=== PATIENT | female | born 1960 | race Two or more races ===

== ENCOUNTER 2018-05-18 13:36 | Inpatient (IN) | payer OTHER ==
[2018-05-18 18:39] VITALS: BMI 26.4
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
[2018-05-18] MEDS ORDERED: P-EPHED 60MG/TRIPROLIDI 2.5MG TABLET PO PRN (20:40)
[2018-05-18] MEDS ORDERED: MAG HYDROX/AL HYDROX/SIMETH 30 ML UNIT-DOSE CUP PO PRN (20:40)
[2018-05-18] MEDS ORDERED: NICOTINE POLACRILEX 2 MG GUM BC PRN (20:40)
[2018-05-18] MEDS ORDERED: IBUPROFEN 400 MG TABLET (FP) PO PRN (20:40)
[2018-05-18] MEDS ORDERED: ACETAMINOPHEN 325 MG TABLET (FP) PO PRN (20:40)
[2018-05-18] MEDS ORDERED: guaiFENesin/D-METHORPHAN HB 10 ML UNIT-DOSE CUPS PO PRN (20:40)
[2018-05-18] MEDS ORDERED: MENTHOL/PHENOL 1 EACH UD MM PRN (20:40)
[2018-05-18] MEDS ORDERED: LOPERAMIDE HCL 2 MG CAPSULE PO PRN (20:40)
[2018-05-18] MEDS ORDERED: METHADONE HCL 10 MG TABLET (FOR DETOX USE ONLY) PO ONE ×2 (20:40→23:00)
[2018-05-18] MEDS ORDERED: MAGNESIUM HYDROX 2400MG/30ML ORAL SUSPENSION 30 ML CUP PO PRN (20:40)
[2018-05-18] MEDS ORDERED: MAGNESIUM CITRATE 300 ML BOTTLE PO PRN (20:40)
[2018-05-18] MEDS ORDERED: hydrOXYzine PAMOATE 50 MG CAPSULE (FP) PO PRN (20:40)
[2018-05-18] MEDS: diazePAM 5 MG TABLET PO PRN (23:21)
[2018-05-18] MEDS: THIAMINE HCL 100 MG TABLET (FP) PO SCH (23:48)
[2018-05-19] MEDS ORDERED: METHADONE HCL 10 MG TABLET (FOR DETOX USE ONLY) PO ONE (10:00)
[2018-05-19] MEDS: PRENATAL VITAMINS W/ FOLIC ACID TABLET (FP) PO SCH (10:23)
[2018-05-19] MEDS: NICOTINE 14 MG/24 HOURS TOPICAL PATCH TD SCH (10:24)
[2018-05-19] MEDS: diazePAM 5 MG TABLET PO PRN (10:24)
[2018-05-19 10:47] LABS: URINE APPEARANCE TURBID; URINE BILIRUBIN NEGATIVE (<2.0 mg/dL); URINE GLUCOSE (UA) NEGATIVE (NEGATIVE); URINE KETONE NEGATIVE (NEGATIVE); URINE LEUK ESTERASE TRACE (NEGATIVE); URINE NITRITE NEGATIVE (NEGATIVE)
[2018-05-19 10:53] LABS: ANION GAP 8 MMOL/L (8-16); BLOOD UREA NITROGEN 15 mg/dL (7-18); CALCIUM 8.4 mg/dL (8.5-10.1); CHLORIDE 103 mmol/L (98-107); CO2 28 mmol/L (21-32); GLUCOSE,RANDOM 91 mg/dL (74-106); POTASSIUM 3.3 mmol/L (3.5-5.1); SODIUM 139 mmol/L (136-145)
[2018-05-19 10:55] LABS: HEMATOCRIT 35.1 % (32.4-45.2); HEMOGLOBIN 11.8 GM/dL (10.7-15.3); MCH 28.3 pg (25.7-33.7); MCHC 33.5 g/dl (32.0-36.0); MEAN CELL VOLUME 84.3 fl (80-96); MEAN PLT VOLUME 8.6 fl (7.5-11.1); PLATELET COUNT 108 K/MM3 (134-434); RBC 4.17 M/mm3 (3.60-5.2); RDW 15.4 % (11.6-15.6); WHITE BLOOD COUNT 2.8 K/mm3 (4.0-10.0)
[2018-05-19 10:57] LABS: ALK PHOS 61 U/L (45-117); BILIRUBIN,TOTAL 0.4 mg/dL (0.2-1.0); CREATININE 0.8 mg/dL (0.55-1.02); SGOT/AST 34 U/L (15-37); SGPT/ALT 19 U/L (12-78)
[2018-05-19 11:01] LABS: URINE COLOR DK YELLOW; URINE PROTEIN 2+ (NEGATIVE)
[2018-05-19 11:05] LABS: TOT PROT 10.6 g/dl (6.4-8.2)
[2018-05-19 11:28] LABS: EPI CELLS RARE /HPF (FEW); URINE BACTERIA MANY /hpf (NONE SEEN); URINE MUCUS MANY
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
[2018-05-19] MEDS ORDERED: risperiDONE 1 MG TABLET (FP) PO ONE (11:56)
--- NOTE | 2018-05-19 12:13 | PN ---
BHS COWS - Scale Resting Pulse: 0= [place] 80 or Below Sweatin= Chills/Flushing Restless Observation: 1= Difficult to Sit Still Pupil Size: 1= Pupils >than Normal Bone or Joint Aches: 2= Severe Diffuse Aches Runny Nose/ Eye Tearin= Nasal Congestion GI Upset > 30mins: 1= Stomach Cramp Tremor Observation of Outstretched Hands: 2= Slight Tremor Visible Yawning Observation: 2= >3x During Session Anxiety or Irritability: 2=Irritable/Anxious Goose Flesh Skin: 0=Smooth Skin COWS Score: 13 BHS Progress Note (SOAP) Subjective: muscle cramping body aches joints pain sweat tremor restlessness Objective: 05/19/18 12:11 Vital Signs Temperature 99.1 F 05/19/18 09:40 Pulse Rate 81 05/19/18 09:40 Respiratory Rate 16 05/19/18 09:40 Blood Pressure 122/63 05/19/18 09:40 O2 Sat by Pulse Oximetry (%) Laboratory Last Values WBC 2.8 K/mm3 (4.0-10.0) L 05/19/18 07:40 RBC 4.17 M/mm3 (3.60-5.2) 05/19/18 07:40 Hgb 11.8 GM/dL (10.7-15.3) 05/19/18 07:40 Hct 35.1 % (32.4-45.2) 05/19/18 07:40 MCV 84.3 fl (80-96) 05/19/18 07:40 MCH 28.3 pg (25.7-33.7) 05/19/18 07:40 MCHC 33.5 g/dl (32.0-36.0) 05/19/18 07:40 RDW 15.4 % (11.6-15.6) 05/19/18 07:40 Plt Count 108 K/MM3 (134-434) L 05/19/18 07:40 MPV 8.6 fl (7.5-11.1) 05/19/18 07:40 Sodium 139 mmol/L (136-145) 05/19/18 07:40 Potassium 3.3 mmol/L (3.5-5.1) L 05/19/18 07:40 Chloride 103 mmol/L (98-107) 05/19/18 07:40 Carbon Dioxide 28 mmol/L (21-32) 05/19/18 07:40 Anion Gap 8 MMOL/L (8-16) 05/19/18 07:40 BUN 15 mg/dL (7-18) 05/19/18 07:40 Creatinine 0.8 mg/dL (0.55-1.02) 05/19/18 07:40 Creat Clearance w eGFR > 60 (>60) 05/19/18 07:40 Random Glucose 91 mg/dL (74-106) 05/19/18 07:40 Calcium 8.4 mg/dL (8.5-10.1) L 05/19/18 07:40 Total Bilirubin 0.4 mg/dL (0.2-1.0) 05/19/18 07:40 AST 34 U/L (15-37) 05/19/18 07:40 ALT 19 U/L (12-78) 05/19/18 07:40 Alkaline Phosphatase 61 U/L (45-117) 05/19/18 07:40 Total Protein 10.6 g/dl (6.4-8.2) H 05/19/18 07:40 Albumin 3.0 g/dl (3.4-5.0) L 05/19/18 07:40 Urine Color Dk yellow 05/19/18 08:20 Urine Appearance Turbid 05/19/18 08:20 Urine pH 5.0 (5.0-8.0) 05/19/18 08:20 Ur Specific [place] 1.029 (1.001-1.035) 05/19/18 08:20 Urine Protein 2+ (NEGATIVE) H 05/19/18 08:20 Urine Glucose (UA) Negative (NEGATIVE) 05/19/18 08:20 Urine Ketones Negative (NEGATIVE) 05/19/18 08:20 Urine Blood Negative (NEGATIVE) 05/19/18 08:20 Urine Nitrite Negative (NEGATIVE) 05/19/18 08:20 Urine Bilirubin Negative (<2.0 mg/dL) 05/19/18 08:20 Urine Urobilinogen 2.0 mg/dL (0.2-1.0) H 05/19/18 08:20 Ur Leukocyte Esterase Trace (NEGATIVE) 05/19/18 08:20 Urine WBC (Auto) None /hpf (3-5) 05/19/18 08:20 Urine RBC (Auto) None /hpf (0-3) 05/19/18 08:20 Ur Epithelial Cells Rare /HPF (FEW) 05/19/18 08:20 Urine Bacteria Many /hpf (NONE SEEN) 05/19/18 08:20 Urine Mucus Many 05/19/18 08:20 lab noted repeat cbc K+ Assessment: 05/19/18 12:12 withdrawal sx Plan: continue detox
[2018-05-19] MEDS: risperiDONE 1 MG TABLET (FP) PO SCH (15:14)
[2018-05-19] MEDS: MELATONIN 5 MG TABLETS PO PRN (22:51)
[2018-05-19] MEDS: THIAMINE HCL 100 MG TABLET (FP) PO SCH (22:51)
[2018-05-20 09:57] LABS: ALBUMIN 2.6 g/dl (3.4-5.0); ANION GAP 8 MMOL/L (8-16); BILIRUBIN,TOTAL 0.3 mg/dL (0.2-1.0); BLOOD UREA NITROGEN 12 mg/dL (7-18); CALCIUM 8.3 mg/dL (8.5-10.1); CHLORIDE 102 mmol/L (98-107); CO2 27 mmol/L (21-32); CREATININE 0.6 mg/dL (0.55-1.02); GLUCOSE,RANDOM 109 mg/dL (74-106); POTASSIUM 3.5 mmol/L (3.5-5.1); SGOT/AST 28 U/L (15-37); SGPT/ALT 17 U/L (12-78); SODIUM 137 mmol/L (136-145); TOT PROT 9.7 g/dl (6.4-8.2)
[2018-05-20 09:58] LABS: ALK PHOS 57 U/L (45-117)
[2018-05-20] MEDS ORDERED: METHADONE HCL 5 MG TABLET (FOR DETOX USE ONLY) PO ONE (10:00)
[2018-05-20] MEDS: NICOTINE 14 MG/24 HOURS TOPICAL PATCH TD SCH (10:08)
[2018-05-20] MEDS: risperiDONE 1 MG TABLET (FP) PO SCH (10:08)
[2018-05-20] MEDS: PRENATAL VITAMINS W/ FOLIC ACID TABLET (FP) PO SCH (10:08)
--- NOTE | 2018-05-20 12:33 | PN ---
BHS COWS - Scale Resting Pulse: 0= [place] 80 or Below Sweatin= Chills/Flushing Restless Observation: 1= Difficult to Sit Still Pupil Size: 1= Pupils >than Normal Bone or Joint Aches: 2= Severe Diffuse Aches Runny Nose/ Eye Tearin= Nasal Congestion GI Upset > 30mins: 2= Nausea/Diarrhea Tremor Observation of Outstretched Hands: 2= Slight Tremor Visible Yawning Observation: 1= 1-2x During Session Anxiety or Irritability: 1=Feels Anxious/Irritable Goose Flesh Skin: 0=Smooth Skin COWS Score: 12 BHS Progress Note (SOAP) Subjective: joints pain muscle cramping body aches tremor sweat trouble sleep at night Objective: 05/20/18 12:35 Vital Signs Temperature 97.1 F L 05/20/18 09:34 Pulse Rate 79 05/20/18 09:34 Respiratory Rate 16 05/20/18 09:34 Blood Pressure 114/77 05/20/18 09:34 O2 Sat by Pulse Oximetry (%) Vital Signs Temperature 97.1 F L 05/20/18 09:34 Pulse Rate 79 05/20/18 09:34 Respiratory Rate 16 05/20/18 09:34 Blood Pressure 114/77 05/20/18 09:34 O2 Sat by Pulse Oximetry (%) Laboratory Last Values WBC 2.8 K/mm3 (4.0-10.0) L 05/19/18 07:40 RBC 4.17 M/mm3 (3.60-5.2) 05/19/18 07:40 Hgb 11.8 GM/dL (10.7-15.3) 05/19/18 07:40 Hct 35.1 % (32.4-45.2) 05/19/18 07:40 MCV 84.3 fl (80-96) 05/19/18 07:40 MCH 28.3 pg (25.7-33.7) 05/19/18 07:40 MCHC 33.5 g/dl (32.0-36.0) 05/19/18 07:40 RDW 15.4 % (11.6-15.6) 05/19/18 07:40 Plt Count 108 K/MM3 (134-434) L 05/19/18 07:40 MPV 8.6 fl (7.5-11.1) 05/19/18 07:40 Sodium 137 mmol/L (136-145) 05/20/18 07:30 Potassium 3.5 mmol/L (3.5-5.1) 05/20/18 07:30 Chloride 102 mmol/L (98-107) 05/20/18 07:30 Carbon Dioxide 27 mmol/L (21-32) 05/20/18 07:30 Anion Gap 8 MMOL/L (8-16) 05/20/18 07:30 BUN 12 mg/dL (7-18) 05/20/18 07:30 Creatinine 0.6 mg/dL (0.55-1.02) 05/20/18 07:30 Creat Clearance w eGFR > 60 (>60) 05/20/18 07:30 Random Glucose 109 mg/dL (74-106) H 05/20/18 07:30 Calcium 8.3 mg/dL (8.5-10.1) L 05/20/18 07:30 Total Bilirubin 0.3 mg/dL (0.2-1.0) 05/20/18 07:30 AST 28 U/L (15-37) 05/20/18 07:30 ALT 17 U/L (12-78) 05/20/18 07:30 Alkaline Phosphatase 57 U/L (45-117) 05/20/18 07:30 Total Protein 9.7 g/dl (6.4-8.2) H 05/20/18 07:30 Albumin 2.6 g/dl (3.4-5.0) L 05/20/18 07:30 Urine Color Dk yellow 05/19/18 08:20 Urine Appearance Turbid 05/19/18 08:20 Urine pH 5.0 (5.0-8.0) 05/19/18 08:20 Ur Specific [place] 1.029 (1.001-1.035) 05/19/18 08:20 Urine Protein 2+ (NEGATIVE) H 05/19/18 08:20 Urine Glucose (UA) Negative (NEGATIVE) 05/19/18 08:20 Urine Ketones Negative (NEGATIVE) 05/19/18 08:20 Urine Blood Negative (NEGATIVE) 05/19/18 08:20 Urine Nitrite Negative (NEGATIVE) 05/19/18 08:20 Urine Bilirubin Negative (<2.0 mg/dL) 05/19/18 08:20 Urine Urobilinogen 2.0 mg/dL (0.2-1.0) H 05/19/18 08:20 Ur Leukocyte Esterase Trace (NEGATIVE) 05/19/18 08:20 Urine WBC (Auto) None /hpf (3-5) 05/19/18 08:20 Urine RBC (Auto) None /hpf (0-3) 05/19/18 08:20 Ur Epithelial Cells Rare /HPF (FEW) 05/19/18 08:20 Urine Bacteria Many /hpf (NONE SEEN) 05/19/18 08:20 Urine Mucus Many 05/19/18 08:20 RPR Titer Nonreactive (NONREACTIVE) 05/19/18 07:40 lab noted uti Assessment: 05/20/18 12:53 withdrawal sx hiv Plan: continue detox ART adherence
[2018-05-20] MEDS ORDERED: ALBUTEROL SO4 8 GM HFA INHALER IH PRN (13:10)
[2018-05-20] MEDS: SULFAMETHOXAZOLE/TRIMETHOPRIM 800MG/160MG D.S. TABLET PO SCH ×2 (13:12→22:33)
[2018-05-20] MEDS: GABAPENTIN 100 MG CAPSULE (FP) PO SCH ×2 (14:12→22:33)
--- NOTE | 2018-05-20 14:19 | EKG ---
Test Reason : Blood Pressure : / mmHG Vent. Rate : 075 BPM Atrial Rate : 075 BPM P-R Int : 168 ms QRS Dur : 098 ms QT Int : 378 ms P-R-T Axes : 050 053 044 degrees QTc Int : 422 ms NORMAL SINUS RHYTHM MINIMAL VOLTAGE CRITERIA FOR LVH, MAY BE NORMAL VARIANT BORDERLINE ECG NO PREVIOUS ECGS AVAILABLE Confirmed by LAURO DICKSON MD ([id number]) on 05/20/2018 2:18:57 PM Referred By: Confirmed By:LAURO DICKSON MD
[2018-05-20] MEDS: THIAMINE HCL 100 MG TABLET (FP) PO SCH (22:33)
[2018-05-20] MEDS: MELATONIN 5 MG TABLETS PO PRN (22:33)
[2018-05-21] MEDS: GABAPENTIN 100 MG CAPSULE (FP) PO SCH ×3 (06:11→22:24)
[2018-05-21] MEDS ORDERED: METHADONE HCL 5 MG TABLET (FOR DETOX USE ONLY) PO ONE (10:00)
[2018-05-21] MEDS: SULFAMETHOXAZOLE/TRIMETHOPRIM 800MG/160MG D.S. TABLET PO SCH ×2 (10:20→22:23)
[2018-05-21] MEDS: risperiDONE 1 MG TABLET (FP) PO SCH (10:20)
[2018-05-21] MEDS: PRENATAL VITAMINS W/ FOLIC ACID TABLET (FP) PO SCH (10:20)
[2018-05-21] MEDS: NICOTINE 14 MG/24 HOURS TOPICAL PATCH TD SCH (10:21)
--- NOTE | 2018-05-21 16:32 | PN ---
BHS Progress Note (SOAP) Subjective: BODY ACHES MUSCLE CRAMPING SWEAT TREMOR IRRITABLE ANXIETY Objective: 05/21/18 16:30 Vital Signs Temperature 97.5 F L 05/21/18 13:46 Pulse Rate 85 05/21/18 13:46 Respiratory Rate 16 05/21/18 13:46 Blood Pressure 128/84 05/21/18 13:46 O2 Sat by Pulse Oximetry (%) Laboratory Last Values WBC 2.8 K/mm3 (4.0-10.0) L 05/19/18 07:40 RBC 4.17 M/mm3 (3.60-5.2) 05/19/18 07:40 Hgb 11.8 GM/dL (10.7-15.3) 05/19/18 07:40 Hct 35.1 % (32.4-45.2) 05/19/18 07:40 MCV 84.3 fl (80-96) 05/19/18 07:40 MCH 28.3 pg (25.7-33.7) 05/19/18 07:40 MCHC 33.5 g/dl (32.0-36.0) 05/19/18 07:40 RDW 15.4 % (11.6-15.6) 05/19/18 07:40 Plt Count 108 K/MM3 (134-434) L 05/19/18 07:40 MPV 8.6 fl (7.5-11.1) 05/19/18 07:40 Sodium 137 mmol/L (136-145) 05/20/18 07:30 Potassium 3.5 mmol/L (3.5-5.1) 05/20/18 07:30 Chloride 102 mmol/L (98-107) 05/20/18 07:30 Carbon Dioxide 27 mmol/L (21-32) 05/20/18 07:30 Anion Gap 8 MMOL/L (8-16) 05/20/18 07:30 BUN 12 mg/dL (7-18) 05/20/18 07:30 Creatinine 0.6 mg/dL (0.55-1.02) 05/20/18 07:30 Creat Clearance w eGFR > 60 (>60) 05/20/18 07:30 Random Glucose 109 mg/dL (74-106) H 05/20/18 07:30 Calcium 8.3 mg/dL (8.5-10.1) L 05/20/18 07:30 Total Bilirubin 0.3 mg/dL (0.2-1.0) 05/20/18 07:30 AST 28 U/L (15-37) 05/20/18 07:30 ALT 17 U/L (12-78) 05/20/18 07:30 Alkaline Phosphatase 57 U/L (45-117) 05/20/18 07:30 Total Protein 9.7 g/dl (6.4-8.2) H 05/20/18 07:30 Albumin 2.6 g/dl (3.4-5.0) L 05/20/18 07:30 Urine Color Dk yellow 05/19/18 08:20 Urine Appearance Turbid 05/19/18 08:20 Urine pH 5.0 (5.0-8.0) 05/19/18 08:20 Ur Specific [place] 1.029 (1.001-1.035) 05/19/18 08:20 Urine Protein 2+ (NEGATIVE) H 05/19/18 08:20 Urine Glucose (UA) Negative (NEGATIVE) 05/19/18 08:20 Urine Ketones Negative (NEGATIVE) 05/19/18 08:20 Urine Blood Negative (NEGATIVE) 05/19/18 08:20 Urine Nitrite Negative (NEGATIVE) 05/19/18 08:20 Urine Bilirubin Negative (<2.0 mg/dL) 05/19/18 08:20 Urine Urobilinogen 2.0 mg/dL (0.2-1.0) H 05/19/18 08:20 Ur Leukocyte Esterase Trace (NEGATIVE) 05/19/18 08:20 Urine WBC (Auto) None /hpf (3-5) 05/19/18 08:20 Urine RBC (Auto) None /hpf (0-3) 05/19/18 08:20 Ur Epithelial Cells Rare /HPF (FEW) 05/19/18 08:20 Urine Bacteria Many /hpf (NONE SEEN) 05/19/18 08:20 Urine Mucus Many 05/19/18 08:20 RPR Titer Nonreactive (NONREACTIVE) 05/19/18 07:40 LAB NOTED REPEAT UA Assessment: 05/21/18 16:32 WITHDRAWAL SX Plan: CONTINUE DETOX
[2018-05-21] MEDS: THIAMINE HCL 100 MG TABLET (FP) PO SCH (22:24)
[2018-05-21 22:56] LABS: URINE APPEARANCE CLEAR; URINE BILIRUBIN NEGATIVE (<2.0 mg/dL); URINE COLOR YELLOW; URINE GLUCOSE (UA) NEGATIVE (NEGATIVE); URINE KETONE NEGATIVE (NEGATIVE); URINE NITRITE NEGATIVE (NEGATIVE); URINE PROTEIN NEGATIVE (NEGATIVE)
[2018-05-21 22:59] LABS: URINE LEUK ESTERASE 2+ (NEGATIVE)
[2018-05-21 23:02] LABS: EPI CELLS RARE /HPF (FEW)
[2018-05-22] MEDS: GABAPENTIN 100 MG CAPSULE (FP) PO SCH ×3 (05:58→23:22)
--- NOTE | 2018-05-22 09:21 | PN ---
S Progress Note (SOAP) Subjective: feeling better less tremor and less sweat no body aches no gi distress Objective: 05/22/18 09:21 Vital Signs Temperature 97.9 F 05/22/18 06:29 Pulse Rate 85 05/22/18 06:29 Respiratory Rate 18 05/22/18 06:29 Blood Pressure 123/68 05/22/18 06:29 O2 Sat by Pulse Oximetry (%) Laboratory Last Values WBC 2.8 K/mm3 (4.0-10.0) L 05/19/18 07:40 RBC 4.17 M/mm3 (3.60-5.2) 05/19/18 07:40 Hgb 11.8 GM/dL (10.7-15.3) 05/19/18 07:40 Hct 35.1 % (32.4-45.2) 05/19/18 07:40 MCV 84.3 fl (80-96) 05/19/18 07:40 MCH 28.3 pg (25.7-33.7) 05/19/18 07:40 MCHC 33.5 g/dl (32.0-36.0) 05/19/18 07:40 RDW 15.4 % (11.6-15.6) 05/19/18 07:40 Plt Count 108 K/MM3 (134-434) L 05/19/18 07:40 MPV 8.6 fl (7.5-11.1) 05/19/18 07:40 Sodium 137 mmol/L (136-145) 05/20/18 07:30 Potassium 3.5 mmol/L (3.5-5.1) 05/20/18 07:30 Chloride 102 mmol/L (98-107) 05/20/18 07:30 Carbon Dioxide 27 mmol/L (21-32) 05/20/18 07:30 Anion Gap 8 MMOL/L (8-16) 05/20/18 07:30 BUN 12 mg/dL (7-18) 05/20/18 07:30 Creatinine 0.6 mg/dL (0.55-1.02) 05/20/18 07:30 Creat Clearance w eGFR > 60 (>60) 05/20/18 07:30 Random Glucose 109 mg/dL (74-106) H 05/20/18 07:30 Calcium 8.3 mg/dL (8.5-10.1) L 05/20/18 07:30 Total Bilirubin 0.3 mg/dL (0.2-1.0) 05/20/18 07:30 AST 28 U/L (15-37) 05/20/18 07:30 ALT 17 U/L (12-78) 05/20/18 07:30 Alkaline Phosphatase 57 U/L (45-117) 05/20/18 07:30 Total Protein 9.7 g/dl (6.4-8.2) H 05/20/18 07:30 Albumin 2.6 g/dl (3.4-5.0) L 05/20/18 07:30 Urine Color Yellow 05/21/18 Unknown Urine Appearance Clear 05/21/18 Unknown Urine pH 6.0 (5.0-8.0) 05/21/18 Unknown Ur Specific [place] 1.014 (1.001-1.035) 05/21/18 Unknown Urine Protein Negative (NEGATIVE) 05/21/18 Unknown Urine Glucose (UA) Negative (NEGATIVE) 05/21/18 Unknown Urine Ketones Negative (NEGATIVE) 05/21/18 Unknown Urine Blood Negative (NEGATIVE) 05/21/18 Unknown Urine Nitrite Negative (NEGATIVE) 05/21/18 Unknown Urine Bilirubin Negative (<2.0 mg/dL) 05/21/18 Unknown Urine Urobilinogen 2.0 mg/dL (0.2-1.0) H 05/21/18 Unknown Ur Leukocyte Esterase 2+ (NEGATIVE) H 05/21/18 Unknown Urine WBC (Auto) 18 /hpf (3-5) 05/21/18 Unknown Urine RBC (Auto) 2 /hpf (0-3) 05/21/18 Unknown Ur Epithelial Cells Rare /HPF (FEW) 05/21/18 Unknown Urine Bacteria Many /hpf (NONE SEEN) 05/19/18 08:20 Urine Mucus Many 05/19/18 08:20 RPR Titer Nonreactive (NONREACTIVE) 05/19/18 07:40 uti lab noted 05/22/18 09:21 Assessment: 05/22/18 09:21 alcohol withdrawal sx uti
[2018-05-22] MEDS ORDERED: METHADONE HCL 10 MG TABLET (FOR DETOX USE ONLY) PO ONE (10:00)
[2018-05-22] MEDS: risperiDONE 1 MG TABLET (FP) PO SCH (10:14)
[2018-05-22] MEDS: NICOTINE 14 MG/24 HOURS TOPICAL PATCH TD SCH (10:14)
[2018-05-22] MEDS: PRENATAL VITAMINS W/ FOLIC ACID TABLET (FP) PO SCH (10:14)
[2018-05-22] MEDS: SULFAMETHOXAZOLE/TRIMETHOPRIM 800MG/160MG D.S. TABLET PO SCH ×2 (10:14→23:22)
[2018-05-22 10:21] LABS: MCH 28.7 pg (25.7-33.7); MCHC 34.4 g/dl (32.0-36.0); MEAN CELL VOLUME 83.5 fl (80-96); MEAN PLT VOLUME 8.4 fl (7.5-11.1); PLATELET COUNT 92 K/MM3 (134-434); RBC 3.84 M/mm3 (3.60-5.2); RDW 15.3 % (11.6-15.6); WHITE BLOOD COUNT 2.5 K/mm3 (4.0-10.0)
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
--- NOTE | 2018-05-22 13:49 | PN ---
[facility] Progress Note Note: patient reported that she has fever on and off x months denies pain denies shortness of breath feeling "week" begin clindamycine and chest x ray patient agrees to have infectious disease specialist evaluation if clindamycin not effective patient acknowledged that detox completion 05/23/18 aftercare revelation patient preferred under the care at [facility]
[2018-05-22] MEDS: CLINDAMYCIN HCL 150 MG CAPSULE (FP) PO SCH (17:34)
[2018-05-22] MEDS: THIAMINE HCL 100 MG TABLET (FP) PO SCH (23:22)
[2018-05-23] MEDS: CLINDAMYCIN HCL 150 MG CAPSULE (FP) PO SCH ×3 (00:28→11:06)
[2018-05-23] MEDS ORDERED: METHADONE HCL 5 MG TABLET (FOR DETOX USE ONLY) PO ONE (06:00)
[2018-05-23] MEDS: GABAPENTIN 100 MG CAPSULE (FP) PO SCH (06:22)
[2018-05-23 09:04] VITALS: BP 108/67; PULSE 80; TEMP 99
[2018-05-23] MEDS: risperiDONE 1 MG TABLET (FP) PO SCH (10:43)
[2018-05-23] MEDS: SULFAMETHOXAZOLE/TRIMETHOPRIM 800MG/160MG D.S. TABLET PO SCH (10:43)
[2018-05-23] MEDS: PRENATAL VITAMINS W/ FOLIC ACID TABLET (FP) PO SCH (10:43)
[2018-05-23] MEDS: NICOTINE 14 MG/24 HOURS TOPICAL PATCH TD SCH (10:44)
== END 2018-05-23 11:45 | disposition other institution (70) | DRG 773 ==
LOC: YASAS 13:36 → Y6N 20:38
PROC: HZ2ZZZZ Detoxification Services for Substance Abuse Treatment (ICD-10-PCS; principal; 2018-05-18)
DX: F11.23 Opioid dependence with withdrawal (principal); F14.20 Cocaine dependence, uncomplicated; F17.210 Nicotine dependence, cigarettes, uncomplicated; F19.24 Other psychoactive substance dependence with psychoactive substance-induced mood disorder; F31.9 Bipolar disorder, unspecified; Z21 Asymptomatic human immunodeficiency virus [HIV] infection status; J45.20 Mild intermittent asthma, uncomplicated; E11.9 Type 2 diabetes mellitus without complications; H26.8 Other specified cataract; H54.61 Unqualified visual loss, right eye, normal vision left eye; R45.89 Other symptoms and signs involving emotional state; Z87.828 Personal history of other (healed) physical injury and trauma
CPT/HCPCS: 36415; 80053; 81003; 81015; 85027; 86593; 93005; 93010; J2794

== ENCOUNTER 2018-05-23 11:47 | Inpatient (IN) | payer OTHER ==
[2018-05-23] MEDS ORDERED: MAGNESIUM HYDROX 2400MG/30ML ORAL SUSPENSION 30 ML CUP PO PRN (13:41)
[2018-05-23] MEDS ORDERED: MAG HYDROX/AL HYDROX/SIMETH 30 ML UNIT-DOSE CUP PO PRN (13:41)
[2018-05-23] MEDS ORDERED: MAGNESIUM CITRATE 300 ML BOTTLE PO PRN (13:41)
[2018-05-23] MEDS ORDERED: guaiFENesin/D-METHORPHAN HB 10 ML UNIT-DOSE CUPS PO PRN (13:41)
[2018-05-23] MEDS ORDERED: P-EPHED 60MG/TRIPROLIDI 2.5MG TABLET PO PRN (13:41)
[2018-05-23] MEDS ORDERED: ACETAMINOPHEN 325 MG TABLET (FP) PO PRN (13:41)
[2018-05-23] MEDS ORDERED: LOPERAMIDE HCL 2 MG CAPSULE PO PRN (13:41)
[2018-05-23] MEDS ORDERED: MENTHOL/PHENOL 1 EACH UD MM PRN (13:41)
[2018-05-23] MEDS ORDERED: NICOTINE POLACRILEX 2 MG GUM BUC PRN (13:41)
[2018-05-23] MEDS ORDERED: ALBUTEROL SO4 8 GM HFA INHALER IH PRN (13:42)
[2018-05-23] MEDS ORDERED: ALBUTEROL SO4 0.083% IH SOL 2.5 MG/3 ML VIAL.NEB. NEB PRN (14:25)
--- NOTE | 2018-05-23 14:25 | HP ---
[facility] Rehab Assess/Revision - Admission History Admitted to Rehab from: [facility] Date of Admission to Rehab: 05/23/18 - Vital signs Vital Signs: Vital Signs Period Temp Pulse Resp BP Sys/Stoner Pulse Ox Last 24 Hr 97.8 F 88 18 101/60 - Findings Detox History & Physical reviewed: Yes Concur with findings: Yes Inpatient Rehab Admission - Initial Determination Are CD services needed?: Yes Free of communicable disease: Yes Not in need of hospitalization: Yes - Rehab Admission Criteria Previous failed treatment: Yes Poor recovery environment: Yes Comorbidities: Yes Lacks judgement: Yes Patient is meeting Inpatient Rehab admission criteria:: Yes
[2018-05-23] MEDS: GABAPENTIN 100 MG CAPSULE (FP) PO SCH ×2 (14:50→21:34)
[2018-05-23] MEDS ORDERED: PT OWN MED DRAWER 7, Y5N ONE ×2 (15:07→17:00)
[2018-05-23] MEDS: CLINDAMYCIN HCL 150 MG CAPSULE (FP) PO SCH ×2 (17:08→23:41)
[2018-05-23] MEDS: hydrOXYzine PAMOATE 50 MG CAPSULE (FP) PO PRN (21:34)
[2018-05-23] MEDS: THIAMINE HCL 100 MG TABLET (FP) PO SCH (21:34)
[2018-05-23] MEDS: SULFAMETHOXAZOLE/TRIMETHOPRIM 800MG/160MG D.S. TABLET PO SCH (21:36)
[2018-05-24] MEDS ORDERED: PT OWN MED DRAWER 7, Y5N ONE ×4 (05:57→19:19)
[2018-05-24] MEDS: CLINDAMYCIN HCL 150 MG CAPSULE (FP) PO SCH ×4 (06:39→23:40)
[2018-05-24] MEDS: GABAPENTIN 100 MG CAPSULE (FP) PO SCH ×3 (06:39→21:37)
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
[2018-05-24] MEDS: PRENATAL VITAMINS W/ FOLIC ACID TABLET (FP) PO SCH (10:51)
[2018-05-24] MEDS: SULFAMETHOXAZOLE/TRIMETHOPRIM 800MG/160MG D.S. TABLET PO SCH ×2 (10:51→21:37)
[2018-05-24] MEDS: NICOTINE 14 MG/24 HOURS TOPICAL PATCH TD SCH (10:52)
[2018-05-24] MEDS: risperiDONE 1 MG TABLET (FP) PO SCH (11:15)
[2018-05-24] MEDS: THIAMINE HCL 100 MG TABLET (FP) PO SCH (21:38)
[2018-05-24] MEDS: MELATONIN 5 MG TABLETS PO PRN (21:38)
[2018-05-24] MEDS: hydrOXYzine PAMOATE 50 MG CAPSULE (FP) PO PRN (21:38)
[2018-05-25] MEDS ORDERED: PT OWN MED DRAWER 7, Y5N ONE ×2 (03:49→13:44)
[2018-05-25] MEDS: GABAPENTIN 100 MG CAPSULE (FP) PO SCH ×3 (06:45→21:35)
[2018-05-25] MEDS: CLINDAMYCIN HCL 150 MG CAPSULE (FP) PO SCH ×4 (06:46→23:21)
[2018-05-25] MEDS: PRENATAL VITAMINS W/ FOLIC ACID TABLET (FP) PO SCH (09:56)
[2018-05-25] MEDS: SULFAMETHOXAZOLE/TRIMETHOPRIM 800MG/160MG D.S. TABLET PO SCH ×2 (09:56→21:35)
[2018-05-25] MEDS: risperiDONE 1 MG TABLET (FP) PO SCH (09:56)
[2018-05-25] MEDS: NICOTINE 14 MG/24 HOURS TOPICAL PATCH TD SCH (09:56)
--- NOTE | 2018-05-25 12:15 | PN ---
[facility] Progress Note Note: Vital Signs Temperature 97.1 F L 05/25/18 07:22 Pulse Rate 85 05/25/18 07:22 Respiratory Rate 18 05/25/18 07:22 Blood Pressure 90/56 05/25/18 07:22 O2 Sat by Pulse Oximetry (%) Patient was evaluated by field service consultant rec: [facility], patient refuse and requested ensure . Ensure order 120 ML BID PO. Increase fluids. Continue to monitor.
[2018-05-25] MEDS: MELATONIN 5 MG TABLETS PO PRN (21:35)
[2018-05-25] MEDS: THIAMINE HCL 100 MG TABLET (FP) PO SCH (21:35)
[2018-05-26] MEDS: CLINDAMYCIN HCL 150 MG CAPSULE (FP) PO SCH ×3 (06:43→19:08)
[2018-05-26] MEDS: GABAPENTIN 100 MG CAPSULE (FP) PO SCH ×3 (06:43→21:41)
[2018-05-26] MEDS: PRENATAL VITAMINS W/ FOLIC ACID TABLET (FP) PO SCH (09:36)
[2018-05-26] MEDS: SULFAMETHOXAZOLE/TRIMETHOPRIM 800MG/160MG D.S. TABLET PO SCH ×2 (09:36→21:41)
[2018-05-26] MEDS: NICOTINE 14 MG/24 HOURS TOPICAL PATCH TD SCH (09:36)
[2018-05-26] MEDS: risperiDONE 1 MG TABLET (FP) PO SCH (09:36)
[2018-05-26] MEDS: THIAMINE HCL 100 MG TABLET (FP) PO SCH (21:41)
[2018-05-26] MEDS: MELATONIN 5 MG TABLETS PO PRN (21:42)
[2018-05-26] MEDS: hydrOXYzine PAMOATE 50 MG CAPSULE (FP) PO PRN (21:42)
[2018-05-27] MEDS: CLINDAMYCIN HCL 150 MG CAPSULE (FP) PO SCH ×5 (00:24→23:57)
[2018-05-27] MEDS: GABAPENTIN 100 MG CAPSULE (FP) PO SCH ×3 (06:42→21:21)
[2018-05-27] MEDS: NICOTINE 14 MG/24 HOURS TOPICAL PATCH TD SCH (09:08)
[2018-05-27] MEDS: risperiDONE 1 MG TABLET (FP) PO SCH (09:08)
[2018-05-27] MEDS: SULFAMETHOXAZOLE/TRIMETHOPRIM 800MG/160MG D.S. TABLET PO SCH ×2 (09:08→21:21)
[2018-05-27] MEDS: PRENATAL VITAMINS W/ FOLIC ACID TABLET (FP) PO SCH (09:08)
[2018-05-27] MEDS: IBUPROFEN 400 MG TABLET (FP) PO PRN (09:10)
--- NOTE | 2018-05-27 13:54 | PN ---
S Progress Note Note: Vital Signs Temperature 97.8 F 05/27/18 07:07 Pulse Rate 73 05/27/18 07:07 Respiratory Rate 18 05/27/18 07:07 Blood Pressure 95/62 05/27/18 07:07 O2 Sat by Pulse Oximetry (%) Patient c/o of "I think I have thrush", right hand swelling with mild pain, denies any trauma to the area. Patient AOx3, no distress EENT WNL no adventitious breath sounds full ROM on all extremities, ambulating with cane skin intact, no erythema - AO Plan: right hand pain secondary to AO, ibuprofen PRN peridex rinse prn increase fluids continue to monitor
[2018-05-27] MEDS ORDERED: PT OWN MED DRAWER 7, Y5N ONE (16:40)
[2018-05-27] MEDS: THIAMINE HCL 100 MG TABLET (FP) PO SCH (21:20)
[2018-05-27] MEDS: MELATONIN 5 MG TABLETS PO PRN (21:21)
[2018-05-27] MEDS: CHLORHEXIDINE GLUCONATE 118 ML MOUTHWASH MM SCH (21:22)
[2018-05-28] MEDS ORDERED: PT OWN MED DRAWER 7, Y5N ONE ×2 (05:54→16:49)
[2018-05-28] MEDS: CLINDAMYCIN HCL 150 MG CAPSULE (FP) PO SCH ×4 (06:35→23:52)
[2018-05-28] MEDS: GABAPENTIN 100 MG CAPSULE (FP) PO SCH ×3 (06:36→21:25)
[2018-05-28] MEDS: PRENATAL VITAMINS W/ FOLIC ACID TABLET (FP) PO SCH (10:14)
[2018-05-28] MEDS: risperiDONE 1 MG TABLET (FP) PO SCH (10:14)
[2018-05-28] MEDS: SULFAMETHOXAZOLE/TRIMETHOPRIM 800MG/160MG D.S. TABLET PO SCH ×2 (10:14→21:25)
[2018-05-28] MEDS: CHLORHEXIDINE GLUCONATE 118 ML MOUTHWASH MM SCH ×2 (10:15→21:26)
[2018-05-28] MEDS: NICOTINE 14 MG/24 HOURS TOPICAL PATCH TD SCH (10:15)
[2018-05-28] MEDS: THIAMINE HCL 100 MG TABLET (FP) PO SCH (21:25)
[2018-05-29] MEDS: GABAPENTIN 100 MG CAPSULE (FP) PO SCH ×3 (06:48→21:53)
[2018-05-29] MEDS: CLINDAMYCIN HCL 150 MG CAPSULE (FP) PO SCH ×3 (06:49→19:03)
[2018-05-29] MEDS ORDERED: PT OWN MED DRAWER 7, Y5N ONE ×3 (06:49→17:00)
[2018-05-29] MEDS: risperiDONE 1 MG TABLET (FP) PO SCH (09:27)
[2018-05-29] MEDS: PRENATAL VITAMINS W/ FOLIC ACID TABLET (FP) PO SCH (09:27)
[2018-05-29] MEDS: SULFAMETHOXAZOLE/TRIMETHOPRIM 800MG/160MG D.S. TABLET PO SCH ×2 (09:27→21:53)
[2018-05-29] MEDS: IBUPROFEN 400 MG TABLET (FP) PO PRN (09:28)
[2018-05-29] MEDS: NICOTINE 14 MG/24 HOURS TOPICAL PATCH TD SCH (09:28)
[2018-05-29] MEDS: MELATONIN 5 MG TABLETS PO PRN (21:53)
[2018-05-29] MEDS: THIAMINE HCL 100 MG TABLET (FP) PO SCH (21:53)
[2018-05-30] MEDS: GABAPENTIN 100 MG CAPSULE (FP) PO SCH ×3 (06:31→21:29)
[2018-05-30] MEDS: NICOTINE 14 MG/24 HOURS TOPICAL PATCH TD SCH (09:59)
[2018-05-30] MEDS: SULFAMETHOXAZOLE/TRIMETHOPRIM 800MG/160MG D.S. TABLET PO SCH ×2 (09:59→21:29)
[2018-05-30] MEDS: PRENATAL VITAMINS W/ FOLIC ACID TABLET (FP) PO SCH (09:59)
[2018-05-30] MEDS: risperiDONE 1 MG TABLET (FP) PO SCH (09:59)
[2018-05-30] MEDS ORDERED: PT OWN MED DRAWER 7, Y5N ONE (10:37)
[2018-05-30] MEDS: IBUPROFEN 400 MG TABLET (FP) PO PRN (10:40)
[2018-05-30] MEDS ORDERED: COLLOIDAL OATMEAL 1 BAR EACH TP PRN (13:24)
[2018-05-30] MEDS: MELATONIN 5 MG TABLETS PO PRN (21:29)
[2018-05-30] MEDS: THIAMINE HCL 100 MG TABLET (FP) PO SCH (21:29)
[2018-05-31] MEDS: GABAPENTIN 100 MG CAPSULE (FP) PO SCH ×3 (06:23→22:02)
[2018-05-31] MEDS: SULFAMETHOXAZOLE/TRIMETHOPRIM 800MG/160MG D.S. TABLET PO SCH ×2 (09:45→22:02)
[2018-05-31] MEDS: PRENATAL VITAMINS W/ FOLIC ACID TABLET (FP) PO SCH (09:45)
[2018-05-31] MEDS: risperiDONE 1 MG TABLET (FP) PO SCH (09:45)
[2018-05-31] MEDS: NICOTINE 14 MG/24 HOURS TOPICAL PATCH TD SCH (09:46)
[2018-05-31] MEDS: THIAMINE HCL 100 MG TABLET (FP) PO SCH (22:02)
[2018-05-31] MEDS: MELATONIN 5 MG TABLETS PO PRN (22:03)
[2018-05-31] MEDS: hydrOXYzine PAMOATE 50 MG CAPSULE (FP) PO PRN (22:03)
[2018-06-01] MEDS: GABAPENTIN 100 MG CAPSULE (FP) PO SCH ×3 (06:19→21:43)
[2018-06-01] MEDS: SULFAMETHOXAZOLE/TRIMETHOPRIM 800MG/160MG D.S. TABLET PO SCH ×2 (10:39→21:43)
[2018-06-01] MEDS: risperiDONE 1 MG TABLET (FP) PO SCH (10:39)
[2018-06-01] MEDS: PRENATAL VITAMINS W/ FOLIC ACID TABLET (FP) PO SCH (10:39)
[2018-06-01] MEDS: NICOTINE 14 MG/24 HOURS TOPICAL PATCH TD SCH (10:39)
[2018-06-01] MEDS: IBUPROFEN 400 MG TABLET (FP) PO PRN (10:41)
[2018-06-01] MEDS: hydrOXYzine PAMOATE 50 MG CAPSULE (FP) PO PRN (10:41)
[2018-06-01] MEDS: THIAMINE HCL 100 MG TABLET (FP) PO SCH (21:43)
[2018-06-01] MEDS: MELATONIN 5 MG TABLETS PO PRN (21:43)
[2018-06-02] MEDS: GABAPENTIN 100 MG CAPSULE (FP) PO SCH (06:35)
[2018-06-02 07:29] VITALS: BP 94/57; PULSE 93; TEMP 98.1
[2018-06-02] MEDS: risperiDONE 1 MG TABLET (FP) PO SCH (09:35)
[2018-06-02] MEDS: NICOTINE 14 MG/24 HOURS TOPICAL PATCH TD SCH (09:35)
[2018-06-02] MEDS: PRENATAL VITAMINS W/ FOLIC ACID TABLET (FP) PO SCH (09:35)
[2018-06-02] MEDS: SULFAMETHOXAZOLE/TRIMETHOPRIM 800MG/160MG D.S. TABLET PO SCH (09:35)
== END 2018-06-02 09:40 | disposition left against medical advice (07) | DRG 770 ==
LOC: YASAS 11:47 → Y3E 11:48
PROVIDERS: ADMIT Psychiatry & Neurology Psychiatry; ATTEND Psychiatry & Neurology Psychiatry
PROC: HZ42ZZZ Group Counseling for Substance Abuse Treatment, Cognitive-Behavioral (ICD-10-PCS; principal; 2018-05-23)
DX: F11.20 Opioid dependence, uncomplicated (principal); F14.20 Cocaine dependence, uncomplicated; F17.210 Nicotine dependence, cigarettes, uncomplicated; F31.9 Bipolar disorder, unspecified; F19.24 Other psychoactive substance dependence with psychoactive substance-induced mood disorder; F39 Unspecified mood [affective] disorder; Z21 Asymptomatic human immunodeficiency virus [HIV] infection status; E11.9 Type 2 diabetes mellitus without complications; E78.00 Pure hypercholesterolemia, unspecified; M13.841 Other specified arthritis, right hand; H26.9 Unspecified cataract; H54.61 Unqualified visual loss, right eye, normal vision left eye; J45.909 Unspecified asthma, uncomplicated; Z91.5 Personal history of self-harm
CPT/HCPCS: 94640; J2794